=== PATIENT | female | born 1940 | race Caucasian/White ===

== ENCOUNTER 2016-11-18 15:54 | Emergency (ER) | payer OTHER ==
[~2016-11-18] VITALS: Ht 165.1 cm; Wt 63.6 kg
[~2016-11-18 15:54] MED LIST: PERCOCET 5/31 TABLET PO; ROXICODONE5 MG PO
[2016-11-18] MEDS ORDERED: KEFLEX250 MG/5 M PO (19:24)
[2016-11-18] MEDS ORDERED: OXYCODONE H5 MG/5 ML PO (19:24)
[2016-11-18 19:50] VITALS: BP 151/74
== END 2016-11-18 19:52 | disposition home or self-care (01) ==
LOC: EME 15:54
DX: S02.609A Fracture of mandible, unspecified, initial encounter for closed fracture (principal); S63.502A Unspecified sprain of left wrist, initial encounter; S01.81XA Laceration without foreign body of other part of head, initial encounter; Z23 Encounter for immunization; W01.0XXA Fall on same level from slipping, tripping and stumbling without subsequent striking against object, initial encounter; I10 Essential (primary) hypertension; Z89.519 Acquired absence of unspecified leg below knee; K21.9 Gastro-esophageal reflux disease without esophagitis
CPT/HCPCS: 70486; 73110; 73130; 99281; 99284